=== PATIENT | male | born 1965 | race African-American/Black ===

== ENCOUNTER 2017-02-19 18:35 | Inpatient (IN) | payer BC, OTHER ==
[~2017-02-19] VITALS: Ht 177.8 cm; Wt 81.6 kg
[~2017-02-19 18:35] MED LIST: ASCO250T5 PO; ASPI81TA31 PO; CHOL10002 PO; FERR325T28 PO; Gabapentin PO; HYDR-3895 PO; Ibuprofen PO; LAMO100T PO; METF500T4 PO; OMEP20CA10 PO; QUET50TA22 PO; SIMV10TA6 PO; TAMS0.4C34 PO
[2017-02-19 20:07] VITALS: BP 125/78
[2017-02-19 20:44] LABS: *AMPHETAMINE, URINE POSITIVE (NEGATIVE); *BARBITURATE, URINE NEGATIVE (NEGATIVE); *CANNABINOID, URINE NEGATIVE (NEGATIVE); *COCCAINE, URINE POSITIVE (NEGATIVE); *OPIATE, URINE NEGATIVE (NEGATIVE); *PHENCYCLIDINE SCREEN,URINE NEGATIVE (NEGATIVE)
[2017-02-20] MEDS ORDERED: PROMETHAZINE HCL 25 MG/1 ML VIAL IM PRN
[2017-02-20] MEDS ORDERED: ONDANSETRON ODT 4 MG TAB.RAPDIS SL PRN
[2017-02-20] MEDS ORDERED: ACETAMINOPHEN 325 MG TABLET PO PRN
[2017-02-20] MEDS ORDERED: LORAZEPAM 1 MG TABLET PO PRN ×2
[2017-02-20] MEDS ORDERED: CLONIDINE HCL 0.1 MG TABLET PO PRN
[2017-02-20] MEDS ORDERED: HYDROXYZINE PAMOATE 25 MG CAPSULE PO PRN
[2017-02-20] MEDS ORDERED: LOPERAMIDE HCL 2 MG CAPSULE PO PRN ×2
[2017-02-20] MEDS ORDERED: diphenhydrAMINE 50 MG CAPSULE PO PRN
[2017-02-20] MEDS ORDERED: DICYCLOMINE HCL 20 MG TABLET PO PRN
[2017-02-20] MEDS ORDERED: MIRALAX 17 GM POWD.PACK PO PRN
[2017-02-20] MEDS ORDERED: LORAZEPAM 2 MG/1 ML VIAL IM PRN
[2017-02-20] MEDS ORDERED: MAG HYDROX/AL HYDROX/SIMETH 30 ML LIQUID UDC PO PRN
[2017-02-20] MEDS ORDERED: MAGNESIUM HYDROXIDE 30 ML LIQUID UDC PO PRN
[2017-02-20] MEDS ORDERED: IBUPROFEN 400 MG TABLET PO PRN
[2017-02-20 08:00] VITALS: BP 122/73
[2017-02-20] MEDS ORDERED: METFORMIN HCL 500 MG TABLET PO SCH ×2 (08:00→09:00)
[2017-02-20] MEDS ORDERED: TUBERCULIN,PURIF.PROT.DERIV. 5 TU/0.1 ML TEST ID ONE (09:00)
[2017-02-20] MEDS ORDERED: ASPIRIN 81 MG TAB.CHEW PO SCH (09:00)
[2017-02-20] MEDS ORDERED: CHOLECALCIFEROL 1,000 UNIT TABLET PO SCH (09:00)
[2017-02-20] MEDS ORDERED: FOLIC ACID 1 MG TABLET PO SCH (09:00)
[2017-02-20] MEDS ORDERED: ASCORBIC ACID 250 MG TABLET PO SCH (09:00)
[2017-02-20] MEDS ORDERED: PATIENT MAY USE OWN MED- MD OK PO SCH (09:00)
[2017-02-20] MEDS ORDERED: GABAPENTIN 300 MG CAPSULE PO SCH (09:00)
[2017-02-20] MEDS ORDERED: THIAMINE HCL 100 MG TABLET PO SCH (09:00)
[2017-02-20] MEDS ORDERED: TAMSULOSIN HCL 0.4 MG CAP.SR.24H PO SCH (09:00)
[2017-02-20] MEDS ORDERED: MULTIVITAMINS,THERAPEUTIC TABLET PO SCH (09:00)
[2017-02-20] MEDS ORDERED: FERROUS SULFATE 325 MG TABEC PO SCH (09:00)
[2017-02-20] MEDS ORDERED: PANTOPRAZOLE SODIUM 40 MG TABLET.DR PO SCH (11:30)
[2017-02-20] MEDS ORDERED: QUETIAPINE FUMARATE 25 MG TABLET PO PRN (11:45)
[2017-02-20] MEDS ORDERED: LAMOTRIGINE 100 MG TABLET PO SCH (17:00)
[2017-02-20] MEDS ORDERED: SIMVASTATIN 10 MG TABLET PO SCH (21:00)
[2017-02-20] MEDS ORDERED: QUETIAPINE FUMARATE 25 MG TABLET PO SCH (21:00)
== END 2017-02-20 13:52 | disposition other institution (70) | DRG 897 ==
LOC: SRC 19:42
PROVIDERS: ADMIT Internal Medicine; ATTEND Internal Medicine
PROC: HZ2ZZZZ Detoxification Services for Substance Abuse Treatment (ICD-10-PCS; principal; 2017-02-19)
DX: F10.230 Alcohol dependence with withdrawal, uncomplicated (principal); F15.23 Other stimulant dependence with withdrawal; Z91.19 Patient's noncompliance with other medical treatment and regimen; F14.23 Cocaine dependence with withdrawal; Y90.9 Presence of alcohol in blood, level not specified; Z59.0 Homelessness; G40.909 Epilepsy, unspecified, not intractable, without status epilepticus; S06.9X0S Unspecified intracranial injury without loss of consciousness, sequela; X58.XXXS Exposure to other specified factors, sequela; Z91.5 Personal history of self-harm; Z86.74 Personal history of sudden cardiac arrest; Z82.49 Family history of ischemic heart disease and other diseases of the circulatory system; Z81.4 Family history of other substance abuse and dependence; E11.9 Type 2 diabetes mellitus without complications; J45.909 Unspecified asthma, uncomplicated; N40.0 Benign prostatic hyperplasia without lower urinary tract symptoms; Z79.84 Long term (current) use of oral hypoglycemic drugs; Z79.899 Other long term (current) drug therapy; F43.10 Post-traumatic stress disorder, unspecified; F31.9 Bipolar disorder, unspecified; G47.00 Insomnia, unspecified; E78.5 Hyperlipidemia, unspecified; F17.210 Nicotine dependence, cigarettes, uncomplicated
CPT/HCPCS: 80307; 80324; 80353; 86580

== ENCOUNTER 2017-10-03 17:59 | Inpatient (IN) | payer BC, OTHER ==
[~2017-10-03] VITALS: Ht 175.3 cm; Wt 77.1 kg
[~2017-10-03 17:59] MED LIST changes: -QUET50TA22 PO
[2017-10-03] MEDS ORDERED: ONDANSETRON 4 MG/2 ML VIAL IM PRN (18:30)
[2017-10-03] MEDS ORDERED: ONDANSETRON ODT 4 MG TAB.RAPDIS SL PRN (18:30)
[2017-10-03] MEDS ORDERED: MAGNESIUM HYDROXIDE 30 ML LIQUID UDC PO PRN (18:30)
[2017-10-03] MEDS ORDERED: LORAZEPAM 1 MG TABLET PO PRN ×2 (18:30)
[2017-10-03] MEDS ORDERED: CLONIDINE HCL 0.1 MG TABLET PO PRN (18:30)
[2017-10-03] MEDS ORDERED: MIRALAX 17 GM POWD.PACK PO PRN (18:30)
[2017-10-03] MEDS ORDERED: BUPRENORPHINE HCL 2 MG TAB.SUBL SL PRN (18:30)
[2017-10-03] MEDS ORDERED: MAG HYDROX/AL HYDROX/SIMETH 30 ML LIQUID UDC PO PRN (18:30)
[2017-10-03] MEDS ORDERED: ACETAMINOPHEN 325 MG TABLET PO PRN (18:30)
[2017-10-03] MEDS ORDERED: LORAZEPAM 2 MG/1 ML VIAL IM PRN (18:30)
[2017-10-03] MEDS ORDERED: IBUPROFEN 600 MG TABLET PO PRN (18:30)
[2017-10-03] MEDS ORDERED: DICYCLOMINE HCL 20 MG TABLET PO PRN (18:30)
[2017-10-03] MEDS ORDERED: LOPERAMIDE HCL 2 MG CAPSULE PO PRN ×2 (18:30)
[2017-10-03] MEDS ORDERED: diphenhydrAMINE 50 MG CAPSULE PO PRN (18:30)
[2017-10-03] MEDS ORDERED: METHOCARBAMOL 750 MG TABLET PO PRN (18:30)
--- NOTE | 2017-10-03 18:50 | NUR ---
PRE ASSESSMENT: PT IS IN INTAKE A/O X 4. HIS GAIT IS STEADY. HE REPORTS A 2ND DEGREE AV BLOCK. 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 HE REPORTS USING HEROIN, ALCOHOL, METH AND COCAINE. HE IS VAGUE ABOUT HOW MUCH HE IS USING BUT STATES HE HAS BEEN USING FOR 3 WEEKS AFTER HAVING 5 MONTHS CLEAN. WILL ENDORSE TO WASHER MACHINE NURSE.
[2017-10-03] MEDS ORDERED: THIAMINE HCL 200 MG/2 ML VIAL IM ONE ×2 (19:00→22:15)
[2017-10-03 19:05] LABS: *AMPHETAMINE, URINE POSITIVE (NEGATIVE); *BARBITURATE, URINE NEGATIVE (NEGATIVE); *CANNABINOID, URINE NEGATIVE (NEGATIVE); *COCCAINE, URINE POSITIVE (NEGATIVE); *OPIATE, URINE NEGATIVE (NEGATIVE); *PHENCYCLIDINE SCREEN,URINE NEGATIVE (NEGATIVE)
--- NOTE | 2017-10-03 20:00 | NUR ---
Admission Notes Ross is 52 y/o male admitted 10/03/[address] [facility] unit at approximately 1900 for Opiates, ETOH and Methamphetamine dependence. Body search done and skin assessment, no contraband found. Healing wound found around 1 cm wide on left dorsal foot and papules on the corners of the mouth, photos taken and put on the file. Ross is 5'9' tall and weighing 170 lbs on standing scale. Px is A&Ox4 and cooperative. Px is ambulatory with steady gait. Px was oriented in the unit and in his room. Speech is clear and audible. Px is allergic to shellfish and Librium. Px is following diabetic diet and wishes to be in full code. Respirations are even and unlabored. Clear lungs on auscultation. Px is constipated, last BM was 7 days ago. Bowel sounds present. Px complained of body aches 10/10, tactile disturbances, and stomach cramps without N/V. Bilateral hand tremors are mild. Px has difficulty sitting still. COWS 13, CIWA 14. Px reports chest pain everyday. Px has PMHx of anxiety, depression, Bipolar, affective disorder, TIA, seizure in which the last was 7 months ago, 2nd degree AV block, HTN, PNA, Hep C, Fx, DM, prostate problems and arthritis. Px reported 4 suicide attempts in which the last was in year 2009. Substance Abuse : 1. Heroin- 0.25 G IV daily for 3 weeks, last take was 10/01/2017. Using for 9 years. 2. Cocaine- 2 G IV daily for 3 weeks, last take 10/03/2017. Using since he was 19 y/o. 3. ETOH- 1 pint of vodka or cognac for 3 weeks, last take was 10/02/2017. Drinking since 5yo 4. Methamphetamine- 1 G IV daily for 3 weeks, last take 10/02/2017. Using for 1 year. Treatment Hx: Had 8 x treatment in a detox centers in which the last was 5 months ago in [facility]. Px can't recall the past 7 treatments. Px denies hospitalization in the last 30 days. Px reports longest sobriety was 22 years when he was still living in [place], [place]. He moved here in [place] in January,. Px is smoking cigarettes 1 pack a day. Px is ok for PNA and Flu vaccines. Px reports has PCP, Dr. Chaitanya Smiley. Px is on fall and seizure precaution. Bed locked on lowest position. Side rails up and padded x2. Call light within reach. We'll continue to monitor. Addendum: 10/04/17 at 0120 by DORIS HENSON RN Px also reported that he has fungal infection on his toes.
[2017-10-03] MEDS ORDERED: LORAZEPAM 1 MG TABLET PO SCH (21:00)
[2017-10-03] MEDS: GABAPENTIN 300 MG CAPSULE PO SCH (21:00)
[2017-10-03] MEDS ORDERED: BUPRENORPHINE HCL 2 MG TAB.SUBL SL SCH (21:00)
--- NOTE | 2017-10-03 22:28 | NUR ---
PRN Miralax and MOM Px complained about his constipation, no BM for 7 days. Miralax 17 g mixed with 200 ml and Milk of Magnesia 30 ml given PO as PRN meds. We'll continue to monitor.
[2017-10-03] MEDS ORDERED: HYDROXYZINE PAMOATE 25 MG CAPSULE PO ONE (22:30)
--- NOTE | 2017-10-04 | NUR ---
COWS and CIWA deferred COWS and CIWA deferred due to the px is sleeping, to assess if the px is awake per doctor's order. We'll continue to monitor.
[2017-10-04 00:11] LABS: ETHANOL < 3 MG/DL (0-0)
[2017-10-04 00:14] LABS: ALANINE AMINOTRANSFERASE 36 U/L (16-63); ALKALINE PHOSPHATASE 59 U/L (50-136); AMYLASE 55 U/L (25-115); ASPARTATE AMINOTRANSFERASE 25 U/L (15-37); BILIRUBIN,TOTAL 0.5 mg/dL (0.2-1.0); CARBON DIOXIDE 30 mmol/L (21-32); CHLORIDE 104 mmol/L (98-107); CREATININE 1.3 mg/dL (0.6-1.3); GLUCOSE 107 mg/dL (74-106); MAGNESIUM 1.8 mg/dL (1.8-2.4); POTASSIUM 3.7 mmol/L (3.5-5.1); TOTAL PROTEIN, SERUM 7.3 g/dL (6.4-8.2); UREA NITROGEN, BLOOD 11 mg/dL (7-18)
[2017-10-04 00:32] LABS: BASOPHILS % (AUTO) 0.6 % (0.0-2.0); EOSINOPHILS # (AUTO) 0.3 K/uL (0.0-0.7); EOSINOPHILS % (AUTO) 4.7 % (0.0-7.0); HEMATOCRIT 44.1 % (40-50); LYMPHOCYTES # (AUTO) 2.2 K/UL (0.8-4.8); LYMPHOCYTES % (AUTO) 38.7 % (20.5-51.5); MEAN CORPUSCULAR HEMOGLOBIN 28.5 UUG (27.0-31.0); MEAN CORPUSCULAR HGB CONC 34 g/dL (32.0-37.0); MEAN CORPUSCULAR VOLUME 83.9 FL (82.0-92.0); MONOCYTES # (AUTO) 0.5 K/UL (0.1-1.30); MONOCYTES % (AUTO) 8.3 % (0.0-11.0); NEUTROPHILS # (AUTO) 2.6 K/UL (1.8-8.9); NEUTROPHILS % (AUTO) 47.7 % (38.5-71.5); PLATELET COUNT (AUTO) 180 K/UL (150-450); RED BLOOD CELL COUNT(AUTO) 5.25 MIL/UL (4.7-6.1); WHITE BLOOD COUNT (AUTO) 5.6 K/UL (4.0-11.2)
[2017-10-04 04:00] VITALS: BP 107/78
--- NOTE | 2017-10-04 07:09 | NUR ---
Start of Shift Endorsement received from nightshift nurse. PT is a 52 y/o male admitted for Heroin, Cocaine, alcohol and meth dependence. Pt has been placed on a Ativan and Subutex taper. Pt is moderately withdrawing AEB COWS 13, CIWA 14 at 1999. Pt is refusing Subutex per nightshift nurse. PT received PRN Ativan and Miralax. Pt reports positive Hx of a seizures. Pt also reports Hx of a HepC+. VS WNL. Full Code. PT is alert and oriented x4. Pt is in STABLE condition at this time. Remains compliant with medication e and diet regimen. All needs have been met, All safety measures in place per hospital policy. Bed in lowest position, side rails up x2, call-light within reach. Will continue to monitor
--- NOTE | 2017-10-04 07:10 | NUR ---
End of Shift Notes 52 y/o male admitted 10/03/2017 for Opiates, ETOH and Methamphetamine dependence. Px is A&Ox4 and cooperative. Px is ambulatory with steady gait. Px is allergic to shellfish and Librium. Px is following diabetic diet and wishes to be in full code. Respirations are even and unlabored. Px is constipated, last BM was 7 days ago. Miralax 17 g mixed with 200 ml and Milk of Magnesia 30 ml given PO as PRN meds Px complained of body aches 10/10, tactile distubances, and stomach cramps without N/V. Px has difficulty sitting still. COWS 13, CIWA 14 at 2000. Px reports chest pain everyday. Oral intake of 1 L, voided 2x, No BM. Slept for 7 hrs. Px is on fall and seizure precaution. Bed locked on lowest position. Side rails up and padded x2. Call light within reach. We'll continue to monitor.
[2017-10-04 08:00] VITALS: BP 108/70
[2017-10-04] MEDS ORDERED: METFORMIN HCL 500 MG TABLET PO SCH (08:00)
[2017-10-04] MEDS ORDERED: MULTIVITAMINS,THERAPEUTIC TABLET PO SCH (09:00)
[2017-10-04] MEDS ORDERED: FOLIC ACID 1 MG TABLET PO SCH (09:00)
[2017-10-04] MEDS ORDERED: ASCORBIC ACID 250 MG TABLET PO SCH (09:00)
[2017-10-04] MEDS ORDERED: FERROUS SULFATE 325 MG TABEC PO SCH (09:00)
[2017-10-04] MEDS ORDERED: ASPIRIN 81 MG TAB.CHEW PO SCH (09:00)
[2017-10-04] MEDS ORDERED: CHOLECALCIFEROL 1,000 UNIT TABLET PO SCH (09:00)
[2017-10-04] MEDS ORDERED: TUBERCULIN,PURIF.PROT.DERIV. 5 TU/0.1 ML TEST ID ONE (09:00)
[2017-10-04] MEDS ORDERED: THIAMINE HCL 100 MG TABLET PO SCH (09:00)
[2017-10-04] MEDS: BUPRENORPHINE HCL 2 MG TAB.SUBL SL SCH ×2 (09:00→15:00)
[2017-10-04] MEDS: GABAPENTIN 300 MG CAPSULE PO SCH ×2 (09:13→15:00)
[2017-10-04] MEDS: LORAZEPAM 1 MG TABLET PO SCH ×2 (09:14→15:00)
[2017-10-04 12:00] VITALS: BP 119/86
--- NOTE | 2017-10-04 14:35 | NUR ---
Pt on patio became unresponsive, pt was taken to the ER by tech and nurse for farther evaluation. Dr. Rangel has been notified.
--- NOTE | 2017-10-04 18:28 | NUR ---
PT has been evaluated at ER and has been transferred to the second floor.
[2017-10-04] MEDS ORDERED: SIMVASTATIN 10 MG TABLET PO SCH (21:00)
[2017-10-04] MEDS ORDERED: TAMSULOSIN HCL 0.4 MG CAP.SR.24H PO SCH (21:00)
[2017-10-05] MEDS ORDERED: BUPRENORPHINE HCL 2 MG TAB.SUBL SL SCH ×2 (09:00→15:00)
[2017-10-05] MEDS ORDERED: LORAZEPAM 1 MG TABLET PO SCH (09:00)
[2017-10-05 09:06] LABS: HEPATITIS B SURFACE AG Negative (Negative)
[2017-10-05] MEDS ORDERED: FOLI1TAB16 PO (18:45)
[2017-10-05] MEDS ORDERED: THIA100T13 PO (18:45)
[2017-10-06] MEDS ORDERED: BUPRENORPHINE HCL 2 MG TAB.SUBL SL SCH (09:00)
[2017-10-06] MEDS ORDERED: LORAZEPAM 1 MG TABLET PO SCH (09:00)
[2017-10-07] MEDS ORDERED: LORAZEPAM 1 MG TABLET PO SCH (09:00)
[2017-10-07] MEDS ORDERED: BUPRENORPHINE HCL 2 MG TAB.SUBL SL SCH (09:00)
== END 2017-10-04 17:00 | disposition short-term general hospital (02) | DRG 897 ==
LOC: SRC 17:59
PROVIDERS: ADMIT Internal Medicine; ATTEND Internal Medicine
PROC: HZ2ZZZZ Detoxification Services for Substance Abuse Treatment (ICD-10-PCS; principal; 2017-10-03)
DX: F10.230 Alcohol dependence with withdrawal, uncomplicated (principal); F11.23 Opioid dependence with withdrawal; I42.9 Cardiomyopathy, unspecified; Z86.74 Personal history of sudden cardiac arrest; F20.9 Schizophrenia, unspecified; I44.1 Atrioventricular block, second degree; F14.20 Cocaine dependence, uncomplicated; R55 Syncope and collapse; R41.82 Altered mental status, unspecified; E11.9 Type 2 diabetes mellitus without complications; D50.9 Iron deficiency anemia, unspecified; S06.9X0S Unspecified intracranial injury without loss of consciousness, sequela; F15.23 Other stimulant dependence with withdrawal; Y90.9 Presence of alcohol in blood, level not specified; F41.9 Anxiety disorder, unspecified; F17.210 Nicotine dependence, cigarettes, uncomplicated; G47.00 Insomnia, unspecified; J45.20 Mild intermittent asthma, uncomplicated; G40.909 Epilepsy, unspecified, not intractable, without status epilepticus; X58.XXXS Exposure to other specified factors, sequela; Z91.5 Personal history of self-harm; Z82.49 Family history of ischemic heart disease and other diseases of the circulatory system; Z59.1 Inadequate housing; N40.0 Benign prostatic hyperplasia without lower urinary tract symptoms; F31.9 Bipolar disorder, unspecified; E78.5 Hyperlipidemia, unspecified
CPT/HCPCS: 36415; 80307; 80324; 80353; 83735; 85025; 86592; 86705; 86803; 87340; 87806; G0480; J3411; Q0162

== ENCOUNTER 2017-10-04 14:59 | Inpatient (IN) | payer BC, OTHER ==
[~2017-10-04] VITALS: Ht 182.9 cm; Wt 90.7 kg
[2017-10-04] MEDS ORDERED: NALOXONE HCL 0.4 MG/ML AMPUL ONE ×2 (15:01→15:32)
[2017-10-04] MEDS ORDERED: NALOXONE HCL 0.4 MG/ML AMPUL IV ONE (15:04)
[2017-10-04] MEDS ORDERED: NALOXONE 2 MG/2 ML SYRINGE ONE ×3 (15:08→15:52)
[2017-10-04 15:14] LABS: ABG BASE EXCESS 0.2 mmol/L; ABG HCO3 23.3 mmol/L; ABG PCO2 33.3 mmHg (35.0-45.0); ABG PH 7.462 (7.350-7.450); ABG PO2 427.7 mmHg (75.0-100.0); ABG SITE RIGHT BRACHIAL; ABG TOTAL HEMOGLOBIN 15.2 G/dL (13.5-18.0); COHb 4.7 % (0.5-1.5); MetHb 0.1 % (0.0-1.5); O2Hb 95.1 % (94.0-97.0)
[2017-10-04 15:15] LABS: *BILIRUBIN,URIN NEGATIVE (NEGATIVE); *BLOOD, URINE NEGATIVE (NEGATIVE); *CLARITY,URINE CLEAR (CLEAR); *COLOR,URINE YELLOW (YELLOW); *KETONES,URINE NEGATIVE (NEGATIVE); *PROTEIN,URINE NEGATIVE (NEGATIVE); LEUKOCYTE ESTERASE ,URINE NEGATIVE (NEGATIVE); NITRITE, URINE NEGATIVE (NEGATIVE); PH,URINE 7.5 (5.0-8.0); UGLUCOSE NEGATIVE (NEGATIVE)
[2017-10-04] MEDS ORDERED: NALOXONE HCL 0.4 MG/ML AMPUL IM ONE ×2 (15:15)
[2017-10-04] MEDS ORDERED: IV NS 1000 ML 1,000 ML IV ONE (15:15)
[2017-10-04 15:27] LABS: *AMPHETAMINE, URINE POSITIVE (NEGATIVE); *BARBITURATE, URINE NEGATIVE (NEGATIVE); *CANNABINOID, URINE NEGATIVE (NEGATIVE); *COCCAINE, URINE POSITIVE (NEGATIVE); *OPIATE, URINE NEGATIVE (NEGATIVE); *PHENCYCLIDINE SCREEN,URINE NEGATIVE (NEGATIVE)
[2017-10-04 15:31] LABS: MUCUS,URINE MODERATE /LPF (0-FEW); SQUAMOUS EPITHELIAL CELL,UR FEW /HPF (NONE SEEN); WBC,URINE 0-3 /HPF (0-3)
[2017-10-04 16:21] LABS: BASOPHILS # (AUTO) 0.1 K/uL (0.0-8.0); BASOPHILS % (AUTO) 1.3 % (0.0-2.0); CREATININE 1.4 mg/dL (0.6-1.3); EOSINOPHILS # (AUTO) 0.5 K/uL (0.0-0.7); EOSINOPHILS % (AUTO) 5.4 % (0.0-7.0); HEMATOCRIT 49.7 % (40-50); HEMOGLOBIN 16.6 G/DL (14.0-18.0); LYMPHOCYTES # (AUTO) 2.6 K/UL (0.8-4.8); LYMPHOCYTES % (AUTO) 30.4 % (20.5-51.5); MEAN CORPUSCULAR HEMOGLOBIN 28.4 UUG (27.0-31.0); MEAN CORPUSCULAR HGB CONC 34 g/dL (32.0-37.0); MEAN CORPUSCULAR VOLUME 84.9 FL (82.0-92.0); MONOCYTES # (AUTO) 0.5 K/UL (0.1-1.30); NEUTROPHILS # (AUTO) 4.9 K/UL (1.8-8.9); NEUTROPHILS % (AUTO) 56.9 % (38.5-71.5); PLATELET COUNT (AUTO) 148 K/UL (150-450); POTASSIUM 3.8 mmol/L (3.5-5.1); RED BLOOD CELL COUNT(AUTO) 5.86 MIL/UL (4.7-6.1); WHITE BLOOD COUNT (AUTO) 8.6 K/UL (4.0-11.2)
[2017-10-04 16:27] LABS: BILIRUBIN,TOTAL 0.3 mg/dL (0.2-1.0); TOTAL PROTEIN, SERUM 7.7 g/dL (6.4-8.2)
[2017-10-04 17:29] LABS: EOSINOPHILS % (MANUAL) 5 % (0-8); LYMPHOCYTES % (MANUAL) 32 % (20-40); MONOCYTES % (MANUAL) 4 % (2-10); NEUTROPHILS % (MANUAL) 59 % (42-75)
[2017-10-04 18:00] VITALS: BP 126/83
--- NOTE | 2017-10-04 18:18 | NUR ---
PT ARRIVED VIA GURNEY, COMPLAINING OF PAIN AND REQUESTING LEROY TO BE REMOVED. PT ALERT TO SELF AND TIME, DID NOT KNOW WHERE HE WAS. DURING ADMISSION, PT STARTED CRYING STATING TRYING TO DO THE RIGHT THING AND TURN LIFE AROUND. BS 88. IV IN LEFT EXTERNAL JUG VEIN, NOTIFIED DR OF PT ARRIVAL. AWAITING ORDERS.
[2017-10-04 19:30] VITALS: BP 106/77
[2017-10-04] MEDS ORDERED: GABAPENTIN 300 MG CAPSULE PO ONE (20:10)
[2017-10-04] MEDS ORDERED: IBUPROFEN 400 MG TABLET PO PRN (20:15)
[2017-10-04] MEDS ORDERED: ACETAMINOPHEN 325 MG TABLET PO PRN (20:15)
--- NOTE | 2017-10-04 20:30 | NUR ---
PATIENT IN THE ROOM TALKING TO STAFFS FROM [facility]. HE IS MAD AND AGITATED WANTED TO SMOKE DOWNSTAIRS. WAITING FOR ADMITTING ORDERS FR DR. SLATER
[2017-10-04] MEDS ORDERED: IBUPROFEN 400 MG TABLET ONE (20:41)
[2017-10-04] MEDS ORDERED: GABAPENTIN 300 MG CAPSULE ONE (20:42)
[2017-10-04] MEDS ORDERED: LORAZEPAM 1 MG TABLET ONE (20:43)
[2017-10-04] MEDS: FERROUS SULFATE 325 MG TABEC PO SCH (20:44)
[2017-10-04] MEDS ORDERED: FERROUS SULFATE 325 MG TABEC PO ONE (20:44)
[2017-10-04] MEDS ORDERED: SIMVASTATIN 10 MG TABLET ONE (20:44)
[2017-10-04] MEDS ORDERED: TAMSULOSIN HCL 0.4 MG CAP.SR.24H ONE (20:45)
[2017-10-04] MEDS: LORAZEPAM 1 MG TABLET PO PRN (20:49)
[2017-10-04] MEDS ORDERED: SIMVASTATIN 10 MG TABLET PO SCH (21:00)
[2017-10-04] MEDS ORDERED: TAMSULOSIN HCL 0.4 MG CAP.SR.24H PO SCH (21:00)
[2017-10-04] MEDS ORDERED: Medication Not On Formulary EA ([Gabapentin] (Neurontin) 300 MG) PO SCH (21:00)
--- NOTE | 2017-10-04 21:30 | NUR ---
GIVEN PRN TYLENOL FOR PAIN OVER THE LEROY CATH INSERTION SITE (URETHRAL ORIFICE) ALSO GIVEN PRN ATIVAN ORDERED. DR. SLATER SEEN PATIENT AT BEDSIDE. REMOVED LEROY CATH ORDERED. STRATED IVF 1/2 NS AT 60 ML/HR VIA LEFT EXTERNAL JUGULAR VEIN. OTHERWISE VSS. MAINTAINED SAFE AND COMFORTABLE. REMINDED ABOUT HOSPITAL'S NO SMOKING POLICY. CALL LIGHT WITHIN REACH.
[2017-10-04] MEDS ORDERED: IV 1/2NS 1000 ML 1,000 ML IV ONE (21:45)
[2017-10-05 04:00] VITALS: BP 96/49
[2017-10-05] MEDS: LORAZEPAM 1 MG TABLET PO PRN (06:14)
--- NOTE | 2017-10-05 06:15 | NUR ---
PATIENT SLEPT GOOD THRU THE NIGHT TOTAL OF 8 HRS OF SLEEP. WOKE UP UPSET WANTED TO HAVE A SHOWER. ASSISTED PATIENT TO RESTROOM AND GET HIMSELF CLEAN. GIVEN ATIVAN FOR AGITATION. OTHERWISE VITAL SIGNS ARE STABLE. NO DIZZINESS OR LIGHTHEADEDNESS COMPLAINT. CALL LIGHT WITHIN REACH.
--- NOTE | 2017-10-05 06:23 | NUR ---
IVF HELD LAST NIGHT AT 12 MN, IV SITE ON LEFT EXTERNAL JUGULAR VEIN PATIENT LEANING ON THE LEFT SIDE WHILE SLEEPING. IV PUMP ALARM GOES OFF WAKING PATIENT UP.
[2017-10-05] MEDS ORDERED: LORAZEPAM 1 MG TABLET ONE (06:28)
[2017-10-05] MEDS ORDERED: PANTOPRAZOLE SODIUM 40 MG TABLET.DR PO SCH (07:00)
[2017-10-05 08:24] LABS: BASOPHILS % (AUTO) 0.4 % (0.0-2.0); EOSINOPHILS # (AUTO) 0.3 K/uL (0.0-0.7); EOSINOPHILS % (AUTO) 5.3 % (0.0-7.0); HEMATOCRIT 42.1 % (36.7-47.1); HEMOGLOBIN 14.6 g/dL (12.5-16.3); LYMPHOCYTES # (AUTO) 1.7 K/uL (20.0-40.0); LYMPHOCYTES % (AUTO) 31.2 % (20.5-51.5); MEAN CORPUSCULAR HEMOGLOBIN 29.1 uug (23.8-33.4); MEAN CORPUSCULAR HGB CONC 35 g/dL (32.5-36.3); MONOCYTES # (AUTO) 0.4 K/uL (2.0-10.0); MONOCYTES % (AUTO) 6.7 % (0.0-11.0); NEUTROPHILS # (AUTO) 3.1 K/uL (1.8-8.9); NEUTROPHILS % (AUTO) 56.4 % (38.5-71.5); PLATELET COUNT (AUTO) 161 K/uL (152-348); RED BLOOD CELL COUNT(AUTO) 5.01 MIL/uL (4.06-5.63)
[2017-10-05 08:29] LABS: BILIRUBIN,TOTAL 0.4 mg/dL (0.2-1.0); CREATININE 1.1 mg/dL (0.6-1.3); MAGNESIUM 1.9 mg/dL (1.8-2.4); PHOSPHOROUS 3.3 mg/dL (2.5-4.9); POTASSIUM 4.5 mmol/L (3.5-5.1); TOTAL PROTEIN, SERUM 6.7 g/dL (6.4-8.2)
[2017-10-05 08:34] LABS: THYROID STIMULATING HORMONE 0.642 mIU/mL (0.358-3.740)
[2017-10-05 08:36] LABS: WHITE BLOOD COUNT (AUTO) 5.4 K/uL (3.6-10.2)
[2017-10-05] MEDS ORDERED: CHOLECALCIFEROL 1,000 UNIT TABLET PO SCH (09:00)
[2017-10-05] MEDS: FERROUS SULFATE 325 MG TABEC PO SCH (09:00)
[2017-10-05] MEDS: GABAPENTIN 300 MG CAPSULE PO SCH ×2 (09:00→16:39)
[2017-10-05] MEDS: LAMOTRIGINE 100 MG TABLET PO SCH ×2 (09:00→16:39)
[2017-10-05] MEDS ORDERED: THIAMINE HCL 100 MG TABLET PO SCH (09:00)
[2017-10-05] MEDS ORDERED: ASPIRIN 81 MG TAB.CHEW PO SCH (09:00)
[2017-10-05] MEDS ORDERED: FOLIC ACID 1 MG TABLET PO SCH (09:00)
[2017-10-05] MEDS ORDERED: ASCORBIC ACID 250 MG TABLET PO SCH (09:00)
[2017-10-05] MEDS ORDERED: MULTIVITAMINS,THERAPEUTIC TABLET PO SCH (09:00)
[2017-10-05] MEDS ORDERED: IV 1/2NS 1000 ML 1,000 ML IV ONE (09:45)
[2017-10-05 11:57] VITALS: BP 96/66
[2017-10-05 15:42] VITALS: BP 115/78
[2017-10-05] MEDS: METFORMIN HCL 500 MG TABLET PO SCH ×2 (16:39→16:40)
--- NOTE | 2017-10-05 17:45 | NUR ---
PT. ANXIOUS ALL DAY RE--RETURNING TO [facility]. HYPERVERBAL. INSISTING THAT STAFF STOP WHAT THEY ARE DOING TO ALLOW HIM TO SMOKE. CRYING INTERMITTANTLY WHEN HAVING ANY RESTRICTIONS ON ACTIVITIES. PT. TRANSFERRED TO [facility] BY [facility].
[2017-10-05] MEDS ORDERED: THIA100T13 PO (18:45)
[2017-10-05] MEDS ORDERED: FOLI1TAB16 PO (18:45)
== END 2017-10-05 17:45 | DRG 917 ==
LOC: ER 15:03 → TELE 17:19 → MED 10-05 10:50
PROVIDERS: ADMIT Internal Medicine; ATTEND Internal Medicine
DX: T40.1X1A Poisoning by heroin, accidental (unintentional), initial encounter (principal); N17.0 Acute kidney failure with tubular necrosis; T42.4X1A Poisoning by benzodiazepines, accidental (unintentional), initial encounter; G93.89 Other specified disorders of brain; Z86.74 Personal history of sudden cardiac arrest; F20.9 Schizophrenia, unspecified; S06.9X0S Unspecified intracranial injury without loss of consciousness, sequela; E78.5 Hyperlipidemia, unspecified; F11.10 Opioid abuse, uncomplicated; R55 Syncope and collapse; R41.82 Altered mental status, unspecified; F13.10 Sedative, hypnotic or anxiolytic abuse, uncomplicated; Y92.238 Other place in hospital as the place of occurrence of the external cause; F31.9 Bipolar disorder, unspecified; F41.9 Anxiety disorder, unspecified; F17.210 Nicotine dependence, cigarettes, uncomplicated; G40.909 Epilepsy, unspecified, not intractable, without status epilepticus; X58.XXXS Exposure to other specified factors, sequela; Z86.73 Personal history of transient ischemic attack (TIA), and cerebral infarction without residual deficits; Z79.899 Other long term (current) drug therapy; Z59.0 Homelessness; N40.0 Benign prostatic hyperplasia without lower urinary tract symptoms; J45.909 Unspecified asthma, uncomplicated; E11.9 Type 2 diabetes mellitus without complications; F14.10 Cocaine abuse, uncomplicated; F10.10 Alcohol abuse, uncomplicated; Y90.9 Presence of alcohol in blood, level not specified; F15.10 Other stimulant abuse, uncomplicated; I44.1 Atrioventricular block, second degree; I25.2 Old myocardial infarction; I11.9 Hypertensive heart disease without heart failure; Z79.82 Long term (current) use of aspirin
CPT/HCPCS: 36415; 36600; 70030-TC; 70450; 71010; 80307; 83735; 84100; 84443; 85025; 93005; A4663; J2310; J3490

== ENCOUNTER 2017-10-05 17:45 | Inpatient (IN) | payer BC, OTHER ==
[~2017-10-05] VITALS: Ht 175.3 cm; Wt 77.1 kg
[2017-10-05 18:00] VITALS: BP 98/63
[2017-10-05] MEDS ORDERED: CLONIDINE HCL 0.1 MG TABLET PO PRN (18:00)
[2017-10-05] MEDS ORDERED: LORAZEPAM 2 MG/1 ML VIAL IM PRN (18:00)
[2017-10-05] MEDS ORDERED: DICYCLOMINE HCL 20 MG TABLET PO PRN (18:00)
[2017-10-05] MEDS ORDERED: HYDROXYZINE PAMOATE 25 MG CAPSULE PO PRN (18:00)
[2017-10-05] MEDS ORDERED: MAGNESIUM HYDROXIDE 30 ML LIQUID UDC PO PRN (18:00)
[2017-10-05] MEDS ORDERED: ACETAMINOPHEN 325 MG TABLET PO PRN (18:00)
[2017-10-05] MEDS ORDERED: IBUPROFEN 600 MG TABLET PO PRN (18:00)
[2017-10-05] MEDS ORDERED: METHOCARBAMOL 750 MG TABLET PO PRN (18:00)
[2017-10-05] MEDS ORDERED: ONDANSETRON 4 MG/2 ML VIAL IM PRN (18:00)
[2017-10-05] MEDS ORDERED: BUPRENORPHINE HCL 2 MG TAB.SUBL SL PRN (18:00)
[2017-10-05] MEDS ORDERED: MAG HYDROX/AL HYDROX/SIMETH 30 ML LIQUID UDC PO PRN (18:00)
[2017-10-05] MEDS ORDERED: LOPERAMIDE HCL 2 MG CAPSULE PO PRN ×2 (18:00)
[2017-10-05] MEDS ORDERED: ONDANSETRON ODT 4 MG TAB.RAPDIS SL PRN (18:00)
[2017-10-05] MEDS ORDERED: MIRALAX 17 GM POWD.PACK PO PRN (18:00)
[2017-10-05] MEDS ORDERED: diphenhydrAMINE 50 MG CAPSULE PO PRN (18:00)
[2017-10-05] MEDS ORDERED: LORAZEPAM 1 MG TABLET PO PRN ×2 (18:00)
--- NOTE | 2017-10-05 18:00 | NUR ---
INTAKE ASSESSMENT Received patient in intake. He is AOX4, stable, and ambulatory. Vital signs WNL. Patient reports allergic to Shellfish derived,Chlordiazepoxide. Patient has seizure hx last seizure 7 months ago. Explained unit protocols and patient verbalized understanding. Will admit patient upon admission to third floor.
[2017-10-05] MEDS ORDERED: FOLI1TAB16 PO (18:45)
[2017-10-05] MEDS ORDERED: THIA100T13 PO (18:45)
--- NOTE | 2017-10-05 19:30 | NUR ---
Admission note Pt is a 52 yo male, A+Ox4, presenting to [facility] for Opiate/ETOH/Meth/Cocaine dependence. Pt has Allergies to Librium and Shellfish, is on Full code status and on Diabetic diet. Pt is 5'9" in height and 170 LBS in weight. Pt has Medical HX of Hep C, PNA, Seizure, Anemia, TIA, HTN, DMII, Bipolar, Anxiety, Depression, Arthritis, Schizophrenia, Mood disorder, intestinal SX, and 2nd degree AV block. Pt has no primary care provider. Pt has been using Heroin IV for 9 years (3 weeks currently), has reached a level of 0.25gm/daily, and last dose was 0.25gm on 10-01-17. Pt has been usinf Cocaine IV for 33 years (3 weeks currently), has reached a level of 2gm/daily, and last dose was 2gm on 10-03-17. Pt has been drinking alcohol for 47 years (3 weeks currently), has reached a level of 1 pint Vodka of Cognac/daily, and last drink was 1 pint liquor on 10-02-17. Pt has been using Methamphetamine IV for 1 year (3 weeks currently), has reached a level of 1gm/daily, and last dose was 1gm on 10-02-17. Pt has home medications already reconciled in [facility]. Pt has HX of previous detox/rehab 5 months ago @ "[facility] This was the patients last time sober. Pt has been a cigarette smoker for 20+ years and has reached a level of 20/daily. Pt appears sober upon admission with V/S WNL. No s/s of distress noted at this time. Respirations even and unlabored. Will continue to monitor.
[2017-10-05 20:15] VITALS: BP 98/55
[2017-10-05] MEDS ORDERED: SIMVASTATIN 10 MG TABLET PO SCH (21:00)
--- NOTE | 2017-10-06 00:30 | NUR ---
UDS Collected and taken to lab, awaiting results
[2017-10-06 00:37] VITALS: BP 112/68
[2017-10-06] MEDS: GABAPENTIN 300 MG CAPSULE PO SCH ×2 (00:55→08:54)
[2017-10-06] MEDS: FERROUS SULFATE 325 MG TABEC PO SCH ×2 (00:55→08:54)
[2017-10-06 00:56] LABS: *AMPHETAMINE, URINE NEGATIVE (NEGATIVE); *BARBITURATE, URINE NEGATIVE (NEGATIVE); *CANNABINOID, URINE NEGATIVE (NEGATIVE); *COCCAINE, URINE POSITIVE (NEGATIVE); *OPIATE, URINE NEGATIVE (NEGATIVE); *PHENCYCLIDINE SCREEN,URINE NEGATIVE (NEGATIVE)
[2017-10-06 04:03] VITALS: BP 118/72
--- NOTE | 2017-10-06 07:00 | NUR ---
End of shift note Pt is a 52 yo male, A+Ox4, presenting to [facility] for Opiate/ETOH/Meth/Cocaine dependence. Pt has Allergies to Librium and Shellfish, is on Full code status and on Diabetic diet. Pt has Medical HX of Hep C, PNA, Seizure, Anemia, TIA, HTN, DMII, Bipolar, Anxiety, Depression, Arthritis, Schizophrenia, Mood disorder, intestinal SX, and 2nd degree AV block. Pt is on Fall and Seizure precautions. Pt is on PRN medications, tolerated well. Pt slept for a total of 9 HRS. Last COWS: 3 and Last CIWA: 2 @0400. No s/s of distress noted at this time. Respirations even and unlabored. Will endorse to day shift nurse.
--- NOTE | 2017-10-06 07:10 | NUR ---
Start of Shift Endorsement received from nightshift nurse. Pt is a 52 y/o male admitted for Heroin, Cocaine, alcohol and meth dependence. Pt has not been placed on any tapers at this time. Pt's symptoms will be treated with PRN medications. Pt is mildly withdrawing AEB COWS 3, CIWA 2 at 0400. Pt reports sleeping 9 hours. Pt did not receive any PRN medications. PT is alert and oriented x4. Pt is in STABLE condition at this time. Remains compliant with medication and diet regimen. All needs have been met, All safety measures in place per hospital policy. Bed in lowest position, side rails up x2, call-light within reach. Will continue to monitor
[2017-10-06 08:00] VITALS: BP 100/66
[2017-10-06] MEDS ORDERED: MULTIVITAMINS,THERAPEUTIC TABLET PO SCH (09:00)
[2017-10-06] MEDS ORDERED: ASCORBIC ACID 250 MG TABLET PO SCH (09:00)
[2017-10-06] MEDS ORDERED: ASPIRIN 81 MG TAB.CHEW PO SCH (09:00)
[2017-10-06] MEDS ORDERED: CHOLECALCIFEROL 1,000 UNIT TABLET PO SCH (09:00)
[2017-10-06] MEDS ORDERED: TAMSULOSIN HCL 0.4 MG CAP.SR.24H PO SCH (09:00)
[2017-10-06] MEDS ORDERED: TUBERCULIN,PURIF.PROT.DERIV. 5 TU/0.1 ML TEST ID ONE (09:00)
--- NOTE | 2017-10-06 10:41 | NUR ---
AMA Note Pt left AMa, Pt refused to comply with treatment plan. Pt educated about the risks and consequences of leaving AMA, pt verbalized understanding but was adamant about leaving. Multiple staff members including the doctor, patient advocates and nurses attempted to reason with the pt without any success. VS WNL. Skin intact, pt denies any suicidal or homicidal ideations. Pt psychiatrist and MD were notified and aware. PT was given a list of community resources, AMA forms explained and signed. All belongings returned to PT. PT left facility AMA on 10/06/17 at 1041.
== END 2017-10-06 10:41 | disposition left against medical advice (07) | DRG 894 ==
LOC: SRC 17:45
PROVIDERS: ADMIT Internal Medicine; ATTEND Internal Medicine
PROC: HZ2ZZZZ Detoxification Services for Substance Abuse Treatment (ICD-10-PCS; principal; 2017-10-05)
DX: F10.230 Alcohol dependence with withdrawal, uncomplicated (principal); I42.9 Cardiomyopathy, unspecified; B19.10 Unspecified viral hepatitis B without hepatic coma; F14.20 Cocaine dependence, uncomplicated; Z86.74 Personal history of sudden cardiac arrest; F20.9 Schizophrenia, unspecified; I44.1 Atrioventricular block, second degree; D50.9 Iron deficiency anemia, unspecified; F12.90 Cannabis use, unspecified, uncomplicated; E78.5 Hyperlipidemia, unspecified; F11.23 Opioid dependence with withdrawal; F17.210 Nicotine dependence, cigarettes, uncomplicated; Y90.9 Presence of alcohol in blood, level not specified; F15.23 Other stimulant dependence with withdrawal; Z20.5 Contact with and (suspected) exposure to viral hepatitis; F41.9 Anxiety disorder, unspecified; G47.00 Insomnia, unspecified; J45.20 Mild intermittent asthma, uncomplicated; Z91.5 Personal history of self-harm; Z79.84 Long term (current) use of oral hypoglycemic drugs; Z79.899 Other long term (current) drug therapy; Z59.1 Inadequate housing; Z82.49 Family history of ischemic heart disease and other diseases of the circulatory system; Z80.9 Family history of malignant neoplasm, unspecified; G40.909 Epilepsy, unspecified, not intractable, without status epilepticus; S06.9X0S Unspecified intracranial injury without loss of consciousness, sequela; X58.XXXS Exposure to other specified factors, sequela; F31.9 Bipolar disorder, unspecified; N40.0 Benign prostatic hyperplasia without lower urinary tract symptoms; E11.9 Type 2 diabetes mellitus without complications; Z91.89 Other specified personal risk factors, not elsewhere classified
CPT/HCPCS: 80307; 80353; A4663

== ENCOUNTER 2021-08-19 22:13 | Emergency (ER) | payer BC, OTHER ==
[~2021-08-19] VITALS: Ht 177.8 cm; Wt 81.6 kg
[~2021-08-19 22:13] MED LIST changes: -ASCO250T5 PO; -FERR325T28 PO; +FOLI1TAB94 PO; -HYDR-3895 PO; -LAMO100T PO; +LAMO100T17 PO; +METF-440 PO; -METF500T4 PO; -OMEP20CA10 PO; +OMEP20CA15 PO; +RIVA10TA PO; -SIMV10TA6 PO; +SIMV10TA98 PO; +THIA100T13 PO
--- NOTE | 2021-08-19 22:25 | NUR ---
Dr. Cloud at bedside for MSE.
--- NOTE | 2021-08-19 22:38 | NUR ---
Xray at bedside.
[2021-08-19 22:44] LABS: HEMATOCRIT 39.5 % (36.7-47.1); MEAN CORPUSCULAR VOLUME 81.6 fL (73.0-96.2); PLATELET COUNT (AUTO) 196 K/uL (152-348)
[2021-08-19 22:54] LABS: CARBON DIOXIDE 25 mmol/L (21-32); CHLORIDE 104 mmol/L (98-107); CREATININE 0.9 mg/dL (0.6-1.3); GLUCOSE 137 mg/dL (74-106); POTASSIUM 3.5 mmol/L (3.5-5.1); UREA NITROGEN, BLOOD 10 mg/dL (7-18)
[2021-08-19 23:00] LABS: ALANINE AMINOTRANSFERASE 58 U/L (16-63); ALKALINE PHOSPHATASE 78 U/L (50-136); ASPARTATE AMINOTRANSFERASE 40 U/L (15-37); BILIRUBIN,DIRECT < 0.1 mg/dL (0.0-0.2); BILIRUBIN,TOTAL 0.4 mg/dL (0.2-1.0); TOTAL PROTEIN, SERUM 7.3 g/dL (6.4-8.2)
--- NOTE | 2021-08-20 00:36 | NUR ---
Patient discharged to home in stable condition. Written and verbal after care instructions given. Patient verbalizes understanding of instructions. Stressed follow up or return to ER for worsening s/s. Patient out of ER with steady gait, no acute signs of distress, VSS, all belongings taken, provided with copies lab and xray results.
[2021-08-20 00:38] VITALS: BP 130/82
== END 2021-08-20 00:39 | disposition home or self-care (01) ==
LOC: ER 22:18
DX: Z02.2 Encounter for examination for admission to residential institution (principal); R94.31 Abnormal electrocardiogram [ECG] [EKG]; Z86.73 Personal history of transient ischemic attack (TIA), and cerebral infarction without residual deficits; I10 Essential (primary) hypertension; F31.9 Bipolar disorder, unspecified; Z59.0 Homelessness; F19.20 Other psychoactive substance dependence, uncomplicated; Z79.01 Long term (current) use of anticoagulants; I25.2 Old myocardial infarction; F20.9 Schizophrenia, unspecified; E11.9 Type 2 diabetes mellitus without complications; Z79.84 Long term (current) use of oral hypoglycemic drugs; Z88.8 Allergy status to other drugs, medicaments and biological substances; Z91.013 Allergy to seafood; Z86.69 Personal history of other diseases of the nervous system and sense organs
CPT/HCPCS: 36415; 71045; 85025; 93005; A4663